=== PATIENT | female | born 1995 | race Caucasian/White ===

== ENCOUNTER → 2022-03-10 | Outpatient (CLI) | payer OTHER, SELFPAY ==
[2022-03-10 22:20] LABS: Amphetamine Urine VISTA NEGATIVE (<1000 ng/mL); Barbiturate Urine VISTA NEGATIVE (< 200 ng/mL); Benzodiazepine Urine VISTA NEGATIVE (< 200 ng/mL); Cocaine Urine VISTA NEGATIVE (< 300 ng/mL); Ecstacy Urine VISTA NEGATIVE (< 500 ng/mL); Methadone Urine VISTA NEGATIVE (< 300 ng/mL); PCP Urine VISTA NEGATIVE (< 25 ng/mL); THC Urine VISTA NEGATIVE (< 50 ng/mL); Vista UDS pH Range 7
== END | disposition home or self-care (01) ==
LOC: LABSPEC 16:32
PROVIDERS: Visit Provider Obstetrics & Gynecology
DX: Z34.00 Encounter for supervision of normal first pregnancy, unspecified trimester (principal)
CPT/HCPCS: 80307; 87086

== ENCOUNTER → 2022-04-05 | Outpatient (CLI) | payer OTHER, SELFPAY ==
[2022-04-05 13:23] LABS: Absolute Lymphocyte Count 1.42 X10^3/uL (0.83-4.51); Absolute Neutrophil Count 7.8 X10^3/uL (2.0-7.7); Basophil# 0.03 X10^3/uL; Basophil% 0.3 % (0-1); Eosinophil# 0.07 X10^3/uL; Eosinophils% 0.7 % (0-5); Hematocrit 34.6 % (37-47); Hemoglobin 11.6 g/dL (12.0-15.0); Lymphocyte # 1.42 X10^3/ul (0.83-4.51); Lymphocyte % 14.2 % (19-41); Mean Corp Hgb Conc 33.5 g/dL (32-36); Mean Corpuscular Hgb 32.3 pg (27.0-32.0); Mean Corpuscular Volume 96.4 fL (81-99); Mean Platelet Vol. 10.7 fl (6.2-12.0); Monocyte# 0.63 X10^3/uL; Monocyte% 6.3 % (0-10); NRBC Flagged by Analyzer 0 % (0-5); Neutrophil # 7.83 X10^3/uL (2.7-7.7); Neutrophil % 78.2 % (47-70); Platelet Count 205 K/mm3 (150-450); RBC Distribution Width SD 45.8 fl (35.1-43.9); Red Blood Count 3.59 M/mm3 (4.2-5.4)
[2022-04-05 13:52] LABS: Glucose Challenge Gest 1H 50g 85 mg/dL (70-140)
== END | disposition home or self-care (01) ==
PROVIDERS: Referring Provider Nurse Practitioner Women's Health; Visit Provider Nurse Practitioner Women's Health
DX: Z34.90 Encounter for supervision of normal pregnancy, unspecified, unspecified trimester (principal); Z13.1 Encounter for screening for diabetes mellitus
CPT/HCPCS: 36415; 82950; 85025

== ENCOUNTER → 2022-05-28 | Outpatient (CLI) | payer OTHER, SELFPAY | END | disposition home or self-care (01) | LOC: LABSPEC 05-31 09:57 | PROVIDERS: Visit Provider Obstetrics & Gynecology | DX: Z34.90 Encounter for supervision of normal pregnancy, unspecified, unspecified trimester (principal) | CPT/HCPCS: 87081 ==

== ENCOUNTER 2022-07-01 13:45 | Inpatient (IN) | payer OTHER, SELFPAY ==
[2022-07-01] VITALS (35 sets, daily range): BP systolic 98–132; BP diastolic 49–78; PULSE 61–95; TEMP 36.4–37.1; O2SAT 96–99; BMI 26.8
[2022-07-01 15:00] LABS: Absolute Lymphocyte Count 1.48 X10^3/uL (0.83-4.51); Absolute Neutrophil Count 6.2 X10^3/uL (2.0-7.7); Basophil# 0.02 X10^3/uL; Basophil% 0.2 % (0-1); Eosinophil# 0.03 X10^3/uL; Eosinophils% 0.4 % (0-5); Hematocrit 37.1 % (37-47); Hemoglobin 12.4 g/dL (12.0-15.0); Lymphocyte # 1.48 X10^3/ul (0.83-4.51); Mean Corp Hgb Conc 33.4 g/dL (32-36); Mean Corpuscular Hgb 30.5 pg (27.0-32.0); Mean Corpuscular Volume 91.4 fL (81-99); Mean Platelet Vol. 11.4 fl (6.2-12.0); Monocyte# 0.49 X10^3/uL; NRBC Flagged by Analyzer 0 % (0-5); Neutrophil # 6.18 X10^3/uL (2.7-7.7); Platelet Count 220 K/mm3 (150-450); RBC Distribution Width CV 13.2 % (11.6-14.6); RBC Distribution Width SD 42.7 fl (35.1-43.9); Red Blood Count 4.06 M/mm3 (4.2-5.4); White Blood Count 8.2 K/mm3 (4.4-11.0)
[2022-07-01] MEDS: miSOPROStol 25 MCG TABLET VAGINAL ×2 (15:30→20:55)
--- NOTE | 2022-07-01 17:31 | HP.PCM.OB_ITS ---
HPI - General General Date of Admission: 07/01/22 HPI Narrative FRED MCGILL, is a 27 F who presents for IOL secondary to postdates. no vb lof good fm no regularctx Maternal Data Information LARY Calculator Estimated Delivery Date Method Current WG Current Estimate 06/23/22 LMP (Certain) 41w 1d Other Estimates 06/26/22 Ultrasound #1 40w 5d PFSH PFSH Medical History (Updated 07/01/22 @ 17:[address] Luisa Azevedo MD) Home Medications docosahexaenoic acid 200 mg capsule ( DHA) 200 mg PO DAILY 03/10/22 [History Last Taken 07/01/22] Allergy/AdvReac Type Severity Reaction Status Date / Time No Known Allergies Allergy Verified 06/11/22 15:59 Family History Grandfather CVA (cerebral vascular accident) Myocardial infarction Grandmother Diabetes Cancer brain Mother Melanoma Surgical History (Updated 07/01/22 @ 17:[address] Luisa Azevedo MD) H/O breast biopsy Social History Smoking Status: Never smoker alcohol intake: never substance use type: does not use caffeine: Yes what type of physical activity do you participate in: aerobics and weight training frequency: 3-4 times per week seatbelt use: always do you feel safe at home: Yes additional social history: - Gabriel History 1 Elective abortions Hx Para 0 Spontaneous abortions Hx # Term Pregnancies Ectopic pregnancies Hx # Pregnancies Multiple births # of living children Visit Details Expected Delivery Route/Plan Labor Preferences- CB/BF classes: encouraged labor support person: Gabriel labor intervention preferences: [] pain management options preferred: limited intervention, open to epidural cut cord/dad catch: gabriel to catch and cut cord : yes PP control planned: discussed discussed possible routes of delivery and associated risks: [] special requests: wants tub labor if possible Plans Covid status: no vaccine Flu vaccine: no Tdap vaccine: given Rhogam: NA LARC form signed: yes Problem list reviewed and updated with the most current plan of care details and appropriate orders placed. Relevant counseling for the gestational age provided. Continue routine care and follow up unless otherwise noted in visit notes/problem list details OB Flowsheet Initial Weight: Not Recorded Date -?-?-?-?-?-?-?-?-?-?-?-?- EGA Weight BP Urine Prot -?-?-?-?-?-?-?-?-?-?-?-?- Glucose FHR FuHt Pres Dilation -?-?-?-?-?-?-?-?-?-?-?-?- Effaced St Visit Note 03/10/22 -?-?-?--?-?-?-?-?-?-?-?-?- 25w 0d 154 lb 2 oz 110/82 Nega tive -?-?-?-?-?-?-?-?-?-?-?-?- Negative 144 24 -?-?-?-?-?-?-?-?-?-?-?-?- JV- transfer of care from [place] due to insurance issues. PT has had all labs. plan for GCT at 28 weeks. we discussed TDAP at next visit. 04/05/22 -?-?-?-?-?-?-?-?-?-?-?-?- 28w 5d 156 lb 4 oz 118/64 Nega tive -?-?-?-?-?-?-?-?-?-?-?-?- Negative 143 28 -?-?-?-?-?-?-?-?-?-?-?-?- MH-No VB, LOF. G ood FM. 28 wk labs, larc, tdap. Worsening varicosity left palm-refer Dr Graham 04/19/22 -?-?-?-?-?-?-?-?-?-?-?-?- 30w 5d 157 lb 110/62 Negative -?-?-?-?-?-?-?-?-?-?-?-?- Negative 140 31 -?-?-?-?-?-?-?-?-?-?-?-?- SM- no vb lof go od fm no regular ctx 05/12/22 -?-?-?-?-?-?-?-?-?-?-?-?- 34w 0d 164 lb 112/74 -?-?-?-?-?-?-?-?-?-?-?-?- 145 33 -?-?-?-?-?-?-?-?-?-?-?-?- JV- no lof ,vagi nal bleeding, or dec fm. labor interventions discussed. 05/28/22 -?-?-?-?-?-?-?-?-?-?-?-?- 36w 2d 162 lb 2 oz 116/76 Nega tive -?-?-?-?-?-?-?-?-?-?-?-?- Negative 143 36 0 -?-?-?-?-?-?-?-?-?-?-?-?- JV- no lof, vagi nal bleeding, or dec fm. gbs collected. 06/03/22 -?-?-?-?-?-?-?-?-?-?-?-?- 37w 1d 168 lb 112/72 Negative -?-?-?-?-?-?-?-?-?-?-?-?- Negative 140 37 0 -?--?-?-?-?-?-?-?-?-?-?-?- MH-No VB, LOF. G ood FM. No CTX. Denies concerns. 06/11/22 -?-?-?-?-?-?-?-?-?-?-?-?- 38w 2d 169 lb 122/74 Negative -?-?-?-?-?-?-?-?-?-?-?-?- Negative 145 37 0.5 -?-?-?-?-?-?-?-?-?-?-?-?- 0 -2 JV- no lof , vaginal bleeding, or dec fm. 06/18/22 -?-?-?-?-?-?-?-?-?-?-?-?- 39w 2d 168 lb 130/82 Negative -?-?-?-?-?-?-?-?-?-?-?-?- Negative 140 37 1 -?-?-?-?-?-?-?-?-?-?-?-?- 80 -1 JV- no lof , vaginal bleeding, or dec fm. no complaints. wants membranes swept 06/25/22 -?-?-?-?-?-?-?-?-?-?-?-?- 40w 2d 166 lb 106/80 -?-?-?-?-?-?-?-?-?-?-?-?- 145 36 1 -?-?-?-?-?--?-?-?-?-?-?-?- JV- baby very lo w but cervix posterior. GENE today JV- baby very low but cervix posterior. GENE today14 07/01/22 -?-?-?-?-?-?-?-?-?-?-?-?- 41w 1d 166 lb 4 oz 125/76 117/73 -?-?-?-?-?-?-?-?-?-?-?-?- -?-?-?-?-?-?-?-?-?-?-?-?- NST FHR Rate Baby A Baseline: 130 Variability:: Moderate Accelerations:: 15 x 15 Decelerations:: None NST Reactive:: Yes FHR Category:: Category I Uterine Activity:: irregular ROS Constitutional Constitutional: Reports systems reviewed and no addt'l complaints, except as documented Eyes Eyes: Denies change in vision ENT HEENT: Reports systems reviewed and no addt'l complaints, except as documented; Denies headache(s) Cardiovascular Cardiovascular: Reports systems reviewed and no addt'l complaints, except as documented; Denies chest pain or dyspnea Respiratory/Chest Respiratory/Chest: Reports systems reviewed and no addt'l complaints, except as documented Gastrointestinal Gastrointestinal: Reports systems reviewed and no addt'l complaints, except as documented; Denies abdominal pain Genitourinary Genitourinary: Reports systems reviewed and no addt'l complaints, except as documented, contractions Details: present (irregular) and movement Details: present; Denies dysuria or genital lesions Musculoskeletal Musculoskeletal: Reports systems reviewed and no addt'l complaints, except as documented Neurologic Neurologic: Reports systems reviewed and no addt'l complaints, except as documented Endocrine Endocrinology: Reports systems reviewed and no addt'l complaints, except as documented Vital Signs Vital Signs Vital Signs: 07/01/22 13:59 07/01/22 13:59 07/01/22 14:00 Temperature 97.9 F Temperature Source Pulse Rate 76 Blood Pressure 125/76 H BP Systolic 125 BP Diastolic 76 07/01/22 17:14 07/01/22 17:13 07/01/22 17:14 Temperature 98.8 F Temperature Source Temporal Pulse Rate Blood Pressure 117/73 BP Systolic 117 BP Diastolic 73 07/01/22 17:14 07/01/22 17:13 Temperature 98.8 F Temperature Source Pulse Rate 63 Blood Pressure BP Systolic BP Diastolic Weight Weight: 166 lb 4 oz Body Mass Index (BMI) 26.8 Physical Exam Const alert, oriented x3, no apparent distress and healthy appearing HEENT normocephalic and moist oral mucous membranes Head and Scalp: atraumatic Neck full ROM, no lymphadenopathy, supple and thyroid normal General: trachea midline Lymph Lymphatic: no lymphadenopathy noted Chest inspection of chest normal Resp normal respiratory effort Cardio regular rate GI normal to inspection, nondistended, normoactive bowel sounds, soft to palpation and non-tender Inspection: gravid external exam normal Manual OB Exam: estimated gestational size appropriate, presentation cephalic, dilated, effaced and station Extremity normal to inspection General Extremity: Negative for edema Skin no rashes or lesions noted Neuro no focal motor deficits and deep tendon reflexes 2+ bilaterally Motor Exam: strength 5/5 throughout and clonus absent Psych mental status grossly normal Labs Labs Labs: Blood Type B POSITIVE Antibody Screen NEGATIVE Hct 37.1 % (37-47) Hgb 12.4 g/dL (12.0-15.0) Glucose 1 Hr 50 gm 85 mg/dL (70-140) Assessment & Plan (1) : QUALIFIERS: Weeks of gestation: 40 weeks Qualified Code(s): Z3A.40 - 40 weeks gestation of COMMENT: GBS neg. NIPT low risk, gender female (Moe Garcia) , AFP negative (2) Supervision of normal first : QUALIFIERS: Trimester: third trimester Qualified Code(s): Z34.03 - Encounter for supervision of normal first , third trimester COMMENT: PRR . LARY:06/23/22 Sp:Gabriel Torres at 25 wk (3) Encounter for induction of labor: COMMENT: cytotec
[2022-07-01 20:22] LABS: ROM Internal Control Test YES-OK TO RESULT pt. (Internal QC); ROM Patient Test Negative (Negative)
[2022-07-01] MEDS: LACTATED RINGERS 500 ML 999 ML IV (21:50)
[2022-07-01] MEDS: Lactated Ringers 1,000 ML 50 ML IV (22:21)
[2022-07-01] MEDS: fentaNYL-bupivacaine (epidural) 100 ML BAG EPIDURAL (22:52)
[2022-07-02] VITALS (28 sets, daily range): BP systolic 106–136; BP diastolic 56–80; PULSE 58–185; RESP 12–16; TEMP 35.8–37.3; O2SAT 82–99
[2022-07-02] MEDS: LACTATED RINGERS 500 ML 999 ML IV (00:10)
[2022-07-02] MEDS: Oxytocin 30 units/NS 500 ml 30 UNITS/500 ML IV.SOLN 334 UNITS IV (01:57)
[2022-07-02] MEDS: Naproxen 500 MG Tablet PO ×2 (08:42→17:21)
[2022-07-02] MEDS: Acetaminophen 500 MG Tablet 1000 MG PO ×2 (11:34→18:36)
[2022-07-02] MEDS: Senna/Docusate Sodium 1 Tablet PO (23:05)
[2022-07-02] MEDS: Benzocaine/Lanolin/Aloe Vera 1 SPRAY EACH TOPICAL (23:06)
[2022-07-03 00:05] VITALS: BP 106/43; PULSE 77; RESP 16; TEMP 35.9
[2022-07-03] MEDS: Naproxen 500 MG Tablet PO ×2 (01:54→12:26)
[2022-07-03] MEDS: Acetaminophen 500 MG Tablet 1000 MG PO (01:55)
[2022-07-03 03:23] VITALS: BP 116/68; PULSE 67; RESP 16; TEMP 36.4
[2022-07-03 08:46] VITALS: BP 109/70; PULSE 59; RESP 16; TEMP 35.9; O2SAT 97
--- NOTE | 2022-07-03 09:13 | EX.PCM.OBRPT ---
Assessment & Plan (1) Encounter for induction of labor: COMMENT: cytotec (2) Supervision of normal first : QUALIFIERS: Trimester: third trimester Qualified Code(s): Z34.03 - Encounter for supervision of normal first , third trimester COMMENT: PRR . LARY:06/23/22 Sp:Roberto Torres at 25 wk (3) : QUALIFIERS: Weeks of gestation: 40 weeks Qualified Code(s): Z3A.40 - 40 weeks gestation of COMMENT: GBS neg. NIPT low risk, gender female (Moe Garcia) , AFP negative Maternal Data Information LARY Calculator Estimated Delivery Date Method Current WG Current Estimate 06/23/22 LMP (Certain) 41w 3d Other Estimates 06/26/22 Ultrasound #1 41w 0d Vaginal Delivery Operative Information Date of Procedure: 07/02/22 Pre-Operative Diagnosis: IOL postdates Post-Operative Diagnosis: same Surgery / Procedure Performed: Spontaneous Vaginal Delivery Type of Anesthesia: Epidural Special Medications: none Estimated Blood Loss: 100 Fluids Replaced: crystalloid Findings Description of Procedure: Patient began pushing and delivered the head in the MEHRDAD presentation. The head was delivered atraumatically . The anterior and posterior shoulders delivered without complication followed by the rest of the infant and the infant was placed on the maternal abdomen. Delayed cord clamping was employed for approximately 60 seconds. Cord was clamped and cut and gentle traction was applied to the cord and the placenta delivered spontaneously immediately following it was noted to be intact with three-vessel cord. The perineum and vagina were inspected and noted to have no laceration. EBL was 100 cc. Patient and infant tolerated delivery well. Presentation: MEHRDAD Amniotic Membrane Rupture Type: Artificial Amniotic Fluid Description: Clear Placental Delivery Description: Spontaneous Placenta Disposition: [facility] Cord Vessel Description: 3 Vessels Cord Entanglement: None Delayed Cord Clamping: Yes Post Vaginal Delivery Medications Given After Delivery: IV Pitocin Episiotomy Description: None Laceration: None Complication Complications: None Procedures Urinary/Genital [id number]: [id number] Vaginal Delivery global pk
--- NOTE | 2022-07-03 09:14 | DCINST_ITS ---
Discharge Instructions Diet Discharge Diet: No restrictions Activity Discharge Activity: Return to Normal Activity, May Drive, May Shower and May Take a Tub Bath (in 4 weeks) May resume sexual activity in: 6-8 weeks (after seen by OB provider) Weight Bearing Status: Full weight bearing Lifting Restrictions: none Dressing / Incision Call your doctor if you observe: Fever of 101 or Higher, Inability to urinate, Using more than 1 pad per hour (for more than 2 hours in a row or more), Shortness of breath, Dizziness, Chest pain and - (headache not controlled with tylenol, change in vision) Follow Up Care When: in 6 weeks for visit, call the office to make the appointment. If you had elevated blood pressures call the office to be seen within 1 week. Test Results: Test results from this visit will be discussed in further detail at your follow- up appointment, if applicable. Discharge Plan Admission Admit Date/Time: 07/01/22 13:45 Attending Provider: Luisa Azevedo Primary Care Provider: Care Physician,Barb Primary Discharge Orders/Prescriptions Prescriptions: No Action DHA 200 mg capsule 200 mg PO DAILY Referrals / Follow Up: Care Physician,No Primary [Primary Care Provider] - Disposition Disposition (needs filled in before D/C Order can be placed): Home, Self Care
--- NOTE | 2022-07-03 09:14 | PCM.PN.OB ---
Subjective Subjective Patient doing well without complaints. Tolerating PO. Ambulating and voiding without difficulty. feeding well. Denies chest pain, shortness of breath, calf pain/swelling, fevers, chills, lightheadedness. Objective Data Objective Data Vital Signs: Vital Signs Temp Pulse Resp BP Pulse Ox O2 Del Method 96.6 F L 59 L 16 109/70 97 Room Air 07/03/22 08:46 07/03/22 08:46 07/03/22 08:46 07/03/22 08:46 07/03/22 08:46 07/03/22 08:46 Oxygen Delivery Method Room Air Weight: 166 lb 4 oz Body Mass Index (BMI) 26.8 Intake & Output: Intake and Output for Last 24 Hours 07/01/22 07/02/22 07/03/22 23:59 23:59 23:59 Intake Total 703.33 / 703.33 1600.00 / 1600.00 Output Total 200 / 200 3050 / 3050 Balance 503.33 / 503.33 -1450.00 / -1450.00 Lab / Micro Data Result Diagrams: 07/01/22 14:40 ROS Constitutional Constitutional: Reports systems reviewed and no addt'l complaints, except as documented Cardiovascular Cardiovascular: Reports systems reviewed and no addt'l complaints, except as documented Respiratory/Chest Respiratory/Chest: Reports systems reviewed and no addt'l complaints, except as documented Gastrointestinal Gastrointestinal: Reports systems reviewed and no addt'l complaints, except as documented Physical Exam Const alert, oriented x3 and no apparent distress HEENT Head and Scalp: atraumatic Resp normal respiratory effort GI soft to palpation and non-tender Bimanual Exam - Vag & Uterus: uterus non-tender Uterus Palpation: uterus fundus firm (below Umbilicus)
[2022-07-03 10:00] VITALS: BP 117/56; PULSE 75; RESP 16; TEMP 36.5; O2SAT 97
== END 2022-07-03 14:20 | disposition home or self-care (01) | DRG 807 ==
PROVIDERS: Obstetrics & Gynecology; Admitting Provider Obstetrics & Gynecology; Visit Provider Obstetrics & Gynecology
DX: O48.0 Post-term pregnancy (principal); Z37.0 Single live birth; Z3A.40 40 weeks gestation of pregnancy
CPT/HCPCS: 59025; 59050; 84112; 85025; 86850; 86900; 86901; 99218; J7120; G0378

== ENCOUNTER → 2022-08-19 | Outpatient (CLI) | payer OTHER, SELFPAY ==
[2022-08-26 16:04] LABS: HPV APTIMA, High Risk Negative (Negative)
== END | disposition home or self-care (01) ==
LOC: LABSPEC 12:15
PROVIDERS: Referring Provider Obstetrics & Gynecology; Visit Provider Obstetrics & Gynecology
DX: Z12.4 Encounter for screening for malignant neoplasm of cervix (principal)
CPT/HCPCS: 87624; 88175; G0145

== ENCOUNTER → 2023-10-12 | Outpatient (CLI) | payer BC, SELFPAY ==
[2023-10-15 06:08] LABS: Chlamydia By Nucleic Acid AMP Negative (Negative); Gonococcus By Nucleic Acid AMP Negative (Negative)
== END | disposition home or self-care (01) ==
PROVIDERS: Visit Provider Obstetrics & Gynecology
DX: Z34.90 Encounter for supervision of normal pregnancy, unspecified, unspecified trimester (principal)
CPT/HCPCS: 87086; 87491; 87591

== ENCOUNTER → 2023-10-25 | Outpatient (CLI) | payer BC, SELFPAY ==
[2023-10-25 14:35] LABS: Absolute Lymphocyte Count 1.84 X10^3/uL (0.83-4.51); Absolute Neutrophil Count 6.4 X10^3/uL (2.0-7.7); Basophil# 0.05 X10^3/uL; Basophil% 0.6 % (0-1); Eosinophil# 0.11 X10^3/uL; Eosinophils% 1.2 % (0-5); Hematocrit 39.7 % (37-47); Lymphocyte # 1.84 X10^3/ul (0.83-4.51); Lymphocyte % 20.3 % (19-41); Mean Corp Hgb Conc 32.7 g/dL (32-36); Mean Corpuscular Hgb 30.1 pg (27.0-32.0); Mean Corpuscular Volume 91.9 fL (81-99); Mean Platelet Vol. 10.3 fl (6.2-12.0); Monocyte# 0.66 X10^3/uL; Monocyte% 7.3 % (0-10); NRBC Flagged by Analyzer 0 % (0-5); Neutrophil # 6.36 X10^3/uL (2.7-7.7); Neutrophil % 70.3 % (47-70); Platelet Count 210 K/mm3 (150-450); RBC Distribution Width CV 13.4 % (11.6-14.6); RBC Distribution Width SD 44.9 fl (35.1-43.9); Red Blood Count 4.32 M/mm3 (4.2-5.4); White Blood Count 9.1 K/mm3 (4.4-11.0)
[2023-10-25 15:31] LABS: NATERA MAILED SPECIMEN
[2023-10-25 15:52] LABS: HIV - WCH Non-Reactive (Nonreactive); Hepatitis B Surface Antigen Non-Reactive (Nonreactive); Hepatitis C Antibody Non-Reactive (Nonreactive); Rubella IgG Reactive (Nonreactive); Syphilis Antibodies Non-reactive
== END | disposition home or self-care (01) ==
PROVIDERS: Referring Provider Obstetrics & Gynecology; Visit Provider Obstetrics & Gynecology
DX: Z34.81 Encounter for supervision of other normal pregnancy, first trimester (principal)
CPT/HCPCS: 36415; 85025; 86703; 86762; 86780; 86803; 86850; 86900; 86901; 87340

== ENCOUNTER → 2024-02-02 | Outpatient (CLI) | payer BC, SELFPAY ==
[2024-02-02 15:52] LABS: Absolute Lymphocyte Count 1.21 X10^3/uL (0.83-4.51); Absolute Neutrophil Count 8.2 X10^3/uL (2.0-7.7); Basophil# 0.03 X10^3/uL; Basophil% 0.3 % (0-1); Eosinophil# 0.11 X10^3/uL; Eosinophils% 1.1 % (0-5); Hematocrit 33.9 % (37-47); Hemoglobin 11.6 g/dL (12.0-15.0); Lymphocyte # 1.21 X10^3/ul (0.83-4.51); Lymphocyte % 11.9 % (19-41); Mean Corp Hgb Conc 34.2 g/dL (32-36); Mean Corpuscular Hgb 32.3 pg (27.0-32.0); Mean Corpuscular Volume 94.4 fL (81-99); Mean Platelet Vol. 10.1 fl (6.2-12.0); Monocyte# 0.52 X10^3/uL; Monocyte% 5.1 % (0-10); NRBC Flagged by Analyzer 0 % (0-5); Neutrophil # 8.24 X10^3/uL (2.7-7.7); Neutrophil % 81.3 % (47-70); Platelet Count 229 K/mm3 (150-450); RBC Distribution Width CV 12.9 % (11.6-14.6); RBC Distribution Width SD 44.7 fl (35.1-43.9); Red Blood Count 3.59 M/mm3 (4.2-5.4); White Blood Count 10.1 K/mm3 (4.4-11.0)
[2024-02-02 16:04] LABS: Glucose Challenge Gest 1H 50g 156 mg/dL (70-140)
[2024-02-02 17:50] LABS: HIV - WCH Non-Reactive (Nonreactive); Syphilis Antibodies Non-reactive
== END | disposition home or self-care (01) ==
LOC: PAVLAB 15:04
PROVIDERS: Advanced Practice Midwife; Referring Provider Obstetrics & Gynecology; Visit Provider Obstetrics & Gynecology
DX: O09.90 Supervision of high risk pregnancy, unspecified, unspecified trimester (principal); Z13.1 Encounter for screening for diabetes mellitus; Z3A.00 Weeks of gestation of pregnancy not specified
CPT/HCPCS: 36415; 82950; 85025; 86703; 86780

== ENCOUNTER → 2024-02-10 | Outpatient (CLI) | payer OTHER, SELFPAY ==
[2024-02-10 08:23] LABS: Glucose GTT-30 minutes 170 mg/dL (110-170)
[2024-02-10 08:39] LABS: Glucose GTT- Fasting 83 mg/dL (74-106)
[2024-02-10 09:18] LABS: Glucose GTT- 1 Hour 156 mg/dL (120-170)
[2024-02-10 10:10] LABS: Glucose GTT- 2 Hour 135 mg/dL (70-120)
[2024-02-10 11:48] LABS: Glucose GTT- 3 Hour 40 mg/dL (74-106)
== END | disposition home or self-care (01) ==
LOC: LAB 06:50
PROVIDERS: Referring Provider Advanced Practice Midwife; Visit Provider Advanced Practice Midwife
DX: O99.810 Abnormal glucose complicating pregnancy (principal); Z3A.00 Weeks of gestation of pregnancy not specified
CPT/HCPCS: 36415; 82951; 82952

== ENCOUNTER → 2024-04-20 | Outpatient (CLI) | payer OTHER, SELFPAY | END | disposition home or self-care (01) | PROVIDERS: Referring Provider Obstetrics & Gynecology; Visit Provider Obstetrics & Gynecology | DX: O09.92 Supervision of high risk pregnancy, unspecified, second trimester (principal); Z3A.00 Weeks of gestation of pregnancy not specified | CPT/HCPCS: 87081 ==

== ENCOUNTER 2024-05-15 11:17 | Inpatient (IN) | payer OTHER, SELFPAY ==
[2024-05-15 11:20] VITALS: BMI 27.6
[2024-05-15 15:04] VITALS: BP 121/67; PULSE 84; RESP 16; TEMP 36.4
[2024-05-15] MEDS: Lactated Ringers 1,000 ML 50 ML IV (15:40)
[2024-05-15] MEDS: Mag /Aluminum/Simeth WCH UDC 30 ML ORAL.SUSP PO (15:42)
[2024-05-15 16:04] LABS: Absolute Lymphocyte Count 1.58 X10^3/uL (0.83-4.51); Absolute Neutrophil Count 6.4 X10^3/uL (2.0-7.7); Basophil# 0.03 X10^3/uL; Basophil% 0.4 % (0-1); Eosinophil# 0.07 X10^3/uL; Eosinophils% 0.8 % (0-5); Hematocrit 36.7 % (37-47); Hemoglobin 12.2 g/dL (12.0-15.0); Lymphocyte # 1.58 X10^3/ul (0.83-4.51); Lymphocyte % 18.7 % (19-41); Mean Corp Hgb Conc 33.2 g/dL (32-36); Mean Corpuscular Volume 90.2 fL (81-99); Mean Platelet Vol. 11.3 fl (6.2-12.0); Monocyte% 4.7 % (0-10); NRBC Flagged by Analyzer 0 % (0-5); Neutrophil # 6.35 X10^3/uL (2.7-7.7); Platelet Count 199 K/mm3 (150-450); RBC Distribution Width CV 13.2 % (11.6-14.6); Red Blood Count 4.07 M/mm3 (4.2-5.4); White Blood Count 8.5 K/mm3 (4.4-11.0)
[2024-05-15 16:19] LABS: AST(SGOT) 25 U/L (15-37); Alanine Aminotransfer ALT/SGPT 19 U/L (13-56); Creatinine, Serum 0.79 mg/dL (0.55-1.02); EST Glomerular Filtration Rate 93 mL/min (>60); Est Glom Filt Rate - Afr Amer 112 mL/min (>60); Estimated Creatinine Clearance 111.48 ml/min; Uric Acid 4.9 mg/dL (2.6-6.0)
[2024-05-15 16:20] LABS: Protein:Creat Ratio 220 mg/g CRE (0-200)
[2024-05-15 16:39] LABS: Syphilis Antibodies Non-reactive
[2024-05-15] MEDS: miSOPROStol 25 MCG TABLET VAGINAL ×2 (17:33→21:40)
[2024-05-15 17:43] VITALS: BP 115/68; PULSE 71; RESP 16
--- NOTE | 2024-05-15 17:53 | HP.PCM.OB_ITS ---
HPI - General General Date of Admission: 05/15/24 HPI Narrative FRED MCGILL, is a 29 y/o @ 40 weeks 1 day who presents to L&D with an GENE found in office to be 1.8. She denies loss of fluid, vaginal bleeding, or contractions. Her last baby was delivered within 12 hours of 2 doses of cytotec. Maternal Data Information LARY Calculator Estimated Delivery Date Method Current WG Current Estimate 05/14/24 LMP (Certain) 40w 1d Other Estimates 05/15/24 Ultrasound #1 40w 0d PFSH PFSH Medical History Chemical Vaginal delivery Encounter for induction of labor Supervision of normal first Home Medications ?Medication ?Instructions ?Recorded ?Last Taken ?Type multivitamin no.47-iron fum 27 cap PO 10/11/23 Unknown History mg-folate no.1 1 mg-dha 300 mg capsule (PNV-DHA) Allergy/AdvReac Type Severity Reaction Status Date / Time No Known Allergies Allergy Verified 05/15/24 10:02 Family History Grandfather CVA (cerebral vascular accident) Myocardial infarction Grandmother Diabetes Cancer brain Mother Melanoma Surgical History H/O breast biopsy Social History adopted: No household members: spouse and children number of children: 1 current occupational status: employed current occupation: [employer] current occupational exposures/hazards: No pets and animals: No history of recent travel: [place] out of state: Yes out of country: No sexually active: Yes Smoking Status: Never smoker alcohol intake: never substance use type: does not use well-balanced diet: daily or most days caffeine: Yes Type: coffee Number of servings: 1 eating out: 1-3 times/week during the past year weight has: other details: had baby in 2021. Back to pre state what type of physical activity do you participate in: walking frequency: 3-4 times per week tammy/taoism: Yazdanism seatbelt use: always do you feel safe at home: Yes additional social history: - Roberto- Baby Formula [employer] [facility] History 3 Elective abortions Hx Para 1 Spontaneous abortions 1 Hx # Term Pregnancies 1 Ectopic pregnancies Hx # Pregnancies Multiple births # of living children 1 Past Pregnancies Del. Date Name GA/Weeks Outcome Route Bth Weight Infant Gen Labor Lgth Anesthesia Del Locatn Provider FOB 07/02/22 Tasha Garcia 41 live - full term 6lbs 12 oz Fema le epidural [facility] Luisa Mejia Delivery Date: 07/02/22 Last Updated by: Irena Wood see problem list for complications, and see note. Visit Details Expected Delivery Route/Plan Labor Preferences- CB/BF classes: [] labor support person: [] labor intervention preferences: [] pain management options preferred: [] cut cord/dad catch: [] : [] PP control planned: [] discussed possible routes of delivery and associated risks: [] special requests: [] Plans Covid status: [] Flu vaccine: declined Tdap vaccine: [] Rhogam: [] LARC form signed: [] Problem list reviewed and updated with the most current plan of care details and appropriate orders placed. Relevant counseling for the gestational age provided. Continue routine care and follow up unless otherwise noted in visit notes/problem list details OB Flowsheet Initial Weight: Not Recorded Date -?-?-?-?-?-?-?-?-?-?-?-?- EGA Weight BP Urine Prot -?-?-?-?-?-?-?-?-?-?-?-?- Glucose FHR FuHt Pres Dilation -?-?-?-?-?-?-?-?-?-?-?-?- Effaced St Visit Note 10/12/23 -?--?-?-?-?-?-?-?-?-?-?-?- 9w 2d 140 lb 2 oz 138/66 -?-?-?-?-?-?-?-?-?-?-?-?- 180 -?-?-?-?-?-?-?-?-?-?-?-?- JV- CRL consiste nt with LMP. desires nipt. has 15 month old at home. 11/07/23 -?-?-?-?-?-?-?-?-?-?-?-?- 13w 0d 142 lb 6 oz 122/82 Nega tive -?-?-?-?-?-?-?-?-?-?-?-?- Negative 153 -?-?-?-?-?-?-?-?-?-?-?-?- LC- no vb/crampi ng. declines afp. anatomy scan ordered. 12/06/23 -?-?-?-?-?-?-?-?-?-?-?-?- 17w 1d 145 lb 6 oz 118/70 Nega tive -?-?-?-?-?-?-?-?-?-?-?-?- Negative 153 -?-?-?-?-?-?-?-?-?-?-?-?- MH-No VB, LOF. N o flutters yet. Denies concerns 01/03/24 -?-?-?-?-?-?-?-?-?-?-?-?- 21w 1d 152 lb 102/69 Negative -?-?-?-?-?-?-?-?-?-?-?-?- Negative 155 21 -?-?-?-?-?-?-?-?-?-?-?-?- KW- no vb/crampi ng. good fm. 28 week labs discussed. 02/02/24 -?-?-?-?-?-?-?-?-?-?-?-?- 25w 3d 154 lb 100/62 Negative -?-?-?-?-?-?-?-?-?-?-?-?- Negative 150 24 -?-?-?-?-?-?-?--?-?-?-?-?- SM- no vb lof go od fm no regular ctx. 03/02/24 -?-?-?-?-?-?-?-?-?-?-?-?- 29w 4d 158 lb 104/69 Negative -?-?-?-?-?-?-?-?-?-?-?-?- Negative 145 28 -?-?-?-?-?-?-?-?-?-?-?-?- KW- no vb/lof/ct x. good fm. KW- no vb/lof/ctx. good fm. no concerns 03/22/24 -?-?-?-?-?-?-?-?-?-?-?-?- 32w 3d 161 lb 106/69 Negative -?-?-?-?-?-?-?-?-?-?-?-?- Negative 140 31 -?-?-?-?-?-?-?-?-?-?-?-?- SM- no vb lof go od fm no regular ctx 04/06/24 -?-?-?-?-?-?-?-?-?-?-?-?- 34w 4d 163 lb 8 oz 116/74 Nega tive -?-?-?-?-?-?-?-?-?-?-?-?- Negative 130 33 -?-?-?-?-?-?-?-?-?-?-?-?- kw- no vb.lof.ct x. good fm. LARC today. 04/20/24 -?-?-?-?-?-?-?-?-?-?-?-?- 36w 4d 167 lb 112/76 Negative -?-?-?-?-?-?-?-?-?-?-?-?- Negative 130 36 Cephalic 1 -?-?-?-?-?-?-?-?-?-?-?-?- SM- no vb lof go od fm no regular ctx gbs 04/30/24 -?-?-?-?-?-?-?-?-?-?-?-?- 38w 0d 169 lb 2 oz 115/74 Nega tive -?-?-?-?-?-?-?-?-?-?-?-?- Negative 130 36 Cephalic -?-?-?-?-?-?-?-?-?-?-?-?- kw- no vb/lof/ct x. good fm. GENE by LILIAN-14. 05/09/24 -?-?--?-?-?-?-?-?-?-?-?-?- 39w 2d 169 lb 121/82 Negative -?-?-?-?-?-?-?-?-?-?-?-?- Negative 130 37 Cephalic 2 -?-?-?-?-?-?-?-?-?-?-?-?- 60 -2 kw- no vb/ lof/ctx. good fm. 05/15/24 -?-?-?-?-?-?-?-?-?-?-?-?- 40w 1d 170 lb 132/91 Negative -?-?-?-?-?-?-?-?-?-?-?-?- Negative 140 38 1.5 -?-?-?-?-?-?-?-?-?-?-?-?- 20 -3 SM- no SM- no vb lof good fm no reg ular ctx ROS Constitutional Constitutional: Denies change in weight, fatigue, fever(s), headache(s), poor appetite or weakness Eyes Eyes: Denies blurry vision, change in vision, seeing flashes or spots in vision ENT HEENT: Denies dizziness, headache(s), loss taste/smell or sore throat Cardiovascular Cardiovascular: Denies chest pain, dizziness, dyspnea, irregular heart rhythm, leg edema, palpitations, rapid heart rate or vomiting Respiratory/Chest Respiratory/Chest: Denies chest tightness, cough, dyspnea or breast pain Gastrointestinal Gastrointestinal: Denies abdominal pain, anorexia, constipation, cramping, diarrhea, hemorrhoids, vomiting or weight changes Genitourinary Genitourinary: Denies dysuria, flank pain, genital lesions, genital pain, urinary frequency or urinary urgency Musculoskeletal Musculoskeletal: Denies back pain, difficulty walking, joint pain, limited range of motion, muscle cramps or numbness Integumentary Integumentary: Denies lesions or unusual bruising Neurologic Neurologic: Denies abnormal movements, abnormal speech, dizziness, numbness, seizure-like activity or syncope Psychiatric Psychiatric: Denies anxiety, behavioral changes, change in appetite, change in libido, cognitive impairment, confusion, depression, difficulty concentrating, hallucinations or suicidal thoughts Endocrine Endocrinology: Denies excessive sweating, polydipsia or polyuria Hematologic/Lymphatic Hematologic/Lymphatic: Denies easy bleeding, easy bruising or lymphadenopathy Allergic/Immunologic Allergic/Immunologic: Denies itchy eyes, lip swelling, seasonal rhinorrhea, rhi nitis, throat swelling, tongue swelling, eczemia, wheezing or asthma Vital Signs Vital Signs Vital Signs: 05/15/24 15:04 05/15/24 15:04 05/15/24 15:04 Temperature Temperature Source Temporal Pulse Rate 84 Respiratory Rate Blood Pressure 121/67 H BP Systolic 121 BP Diastolic 67 05/15/24 15:04 05/15/24 15:04 05/15/24 17:43 Temperature 97.6 F L Temperature Source Pulse Rate Respiratory Rate 16 Blood Pressure 115/68 BP Systolic 115 BP Diastolic 68 05/15/24 17:43 Temperature Temperature Source Pulse Rate 71 Respiratory Rate Blood Pressure BP Systolic BP Diastolic Weight Weight: 171 lb Body Mass Index (BMI) 27.6 Physical Exam Const alert, oriented x3, no apparent distress and healthy appearing General Appearance: cooperative; Negative for anxious HEENT normocephalic Face and Sinus: normal facial exam Eyes EOMs intact bilaterally and no scleral icterus General Eye: normal appearance of both eyes Neck full ROM and supple Lymph Lymphatic: no lymphadenopathy noted Chest Chest: abnormal inspection of the chest Resp normal respiratory effort Effort and Inspection: able to speak in complete sentences Cardio regular rate GI soft to palpation and non-tender Inspection: gravid Palpation: soft; Negative for tender external exam normal Amniotic Fluid: ROM+plus Back/Spine no CVA tenderness Extremity normal to inspection, full ROM and no clubbing, cyanosis or edema General Extremity: Negative for calf tenderness or edema Skin Lesions: no lesions Rashes: no rashes Psych mental status grossly normal Labs Labs Labs: Blood Type B POSITIVE Antibody Screen NEGATIVE Hct 36.7 % (37-47) L Hgb 12.2 g/dL (12.0-15.0) Syphilis Total Ab Non-reactive Rubella IgG Antibody Reactive (Nonreactive) Hep Bs Antigen Non-Reactive (Nonreactive) Hepatitis C Antibody Non-Reactive (Nonreactive) Chlamydia DNA (DEVIN) Negative (Negative) N.gonorrhoeae DNA (DEVIN) Negative (Negative) HIV 1&2 Antibody Non-Reactive (Nonreactive) Glucose 1 Hr 50 gm 156 mg/dL (70-140) H Rhogam given: No Assessment & Plan (1) Abnormal glucose affecting : COMMENT: normal 3 hour (2) Supervision of high-risk : QUALIFIERS: Trimester: second trimester Qualified Code(s): O09.92 - Supervision of high risk , unspecified, second trimester COMMENT: [id number], LARY 05/14/24, girl, Prudence Cordova, Brian (3) : QUALIFIERS: Weeks of gestation: 40 weeks Qualified Code(s): Z3A.40 - 40 weeks gestation of COMMENT: GBS Negative, NIPT low risk, declines carrier testing and AFP. nl anatomy (4) Pelvic floor dysfunction in female: COMMENT: discussed PFPT (5) Oligohydramnios: PLAN: Plan Patient presents IOL, plan management for with pitocin/AROM. Pain management: plans epidural. GBS negative. Management of any complications: none I have reviewed the PFSH and made any clinically relevant updates.
[2024-05-15 20:29] VITALS: BP 113/68; PULSE 68
[2024-05-15 20:30] VITALS: PULSE 80; RESP 16; TEMP 36.7; O2SAT 97
[2024-05-16] VITALS (49 sets, daily range): BP systolic 109–137; BP diastolic 53–86; PULSE 54–103; RESP 16–20; TEMP 36.5–37.1; O2SAT 96–100
[2024-05-16] MEDS: Lactated Ringers 1,000 ML 999 ML IV (00:09)
[2024-05-16] MEDS: fentaNYL-bupivacaine (epidural) 100 ML BAG EPIDURAL (00:55)
[2024-05-16] MEDS: Oxytocin 15 Units/NS 250ml 15 UNITS/250 ML IV.SOLN 334 UNITS IV (01:10)
--- NOTE | 2024-05-16 01:25 | OP.PCM_ITS ---
Assessment & Plan (1) Encounter for induction of labor: COMMENT: cytotec (2) Supervision of normal first : QUALIFIERS: Trimester: third trimester Qualified Code(s): Z34.03 - Encounter for supervision of normal first , third trimester COMMENT: PRR . LARY:06/23/22 Sp:Roberto Torres at 25 wk (3) : QUALIFIERS: Weeks of gestation: 40 weeks Qualified Code(s): Z3A.40 - 40 weeks gestation of COMMENT: GBS neg. NIPT low risk, gender female (Moe Garcia) , AFP negative (4) Oligohydramnios: (5) Abnormal glucose affecting : COMMENT: normal 3 hour (6) Supervision of high-risk : QUALIFIERS: Trimester: second trimester Qualified Code(s): O09.92 - Supervision of high risk , unspecified, second trimester COMMENT: [id number], LARY 05/14/24, girl, Prudence Cordova, Brian (7) : QUALIFIERS: Weeks of gestation: 40 weeks Qualified Code(s): Z3A.40 - 40 weeks gestation of COMMENT: GBS Negative, NIPT low risk, declines carrier testing and AFP. nl anatomy (8) Pelvic floor dysfunction in female: COMMENT: discussed PFPT Maternal Data Information LARY Calculator Estimated Delivery Date Method Current WG Current Estimate 05/14/24 LMP (Certain) 40w 2d Other Estimates 05/15/24 Ultrasound #1 40w 1d Vaginal Delivery Maternal Presentation Maternal Presentation: Medically Indicated Induction Type of Induction: Cervidil Operative Information Date of Procedure: 05/16/24 Pre-Operative Diagnosis: 29 y/o @ 40 weeks 2 days, oligohydramnios Post-Operative Diagnosis: 29 y/o @ 40 weeks 2 days, oligohydramnios Surgery / Procedure Performed: Spontaneous Vaginal Delivery Type of Anesthesia: Epidural Special Medications: none Estimated Blood Loss: 100 Fluids Replaced: crystalloid Time of Delivery: 01:06 Findings Description of Procedure: Patient began pushing and delivered the head in the MEHRDAD presentation. The head was delivered atraumatically . The anterior and posterior shoulders delivered without complication followed by the rest of the and the was placed on the maternal abdomen. Delayed cord clamping was employed for approximately 60 seconds. Cord was clamped and cut and gentle traction was applied to the cord and the placenta delivered spontaneously immediately following it was noted to be intact with three-vessel cord. The perineum and vagina were inspected and noted to have a 1st degree perineal laceration and a left labial laceration. Both were repaired using a 3-0 vicryl. EBL was 100 cc. Patient and tolerated delivery well. baby girl Prudence Lyons Presentation: MEHRDAD Amniotic Membrane Rupture Type: Artificial Amniotic Fluid Description: Clear Placental Delivery Description: Spontaneous Placenta Disposition: [facility] Cord Vessel Description: 3 Vessels Cord Entanglement: None A Gender: Female (1 minute): 8 (5 minute): 9 Delayed Cord Clamping: Yes Post Vaginal Delivery Medications Given After Delivery: IV Pitocin Episiotomy Description: None Laceration: Perineal Extension/lac (left labial tear ) and 1st degree Complication Complications: None Procedures Urinary/Genital [id number]: [id number] Vaginal Delivery [facility]
[2024-05-16] MEDS: Lidocaine 1% (20 ml mdv) 20 ML Vial INFILT (01:28)
--- NOTE | 2024-05-16 01:31 | DCINST_ITS ---
Discharge Instructions Diet Discharge Diet: No restrictions Activity Discharge Activity: Return to Normal Activity, May Drive, May Shower and May Take a Tub Bath (in 4 weeks) May resume sexual activity in: 6-8 weeks (after seen by OB provider) Weight Bearing Status: Full weight bearing Lifting Restrictions: none Dressing / Incision Call your doctor if you observe: Fever of 101 or Higher, Inability to urinate, Using more than 1 pad per hour (for more than 2 hours in a row or more), Shortness of breath, Dizziness, Chest pain and - (headache not controlled with tylenol, change in vision) Follow Up Care When: in 6 weeks for visit, call the office to make the appointment. If you had elevated blood pressures call the office to be seen within 1 week. Test Results: Test results from this visit will be discussed in further detail at your follow- up appointment, if applicable. Discharge Plan Admission Admit Date/Time: 05/15/24 11:17 Primary Reason for Your Visit: vaginal delivery Attending Provider: Katie Taylor Primary Care Provider: Care Physician,Barb Primary Discharge Orders/Prescriptions Prescriptions: No Action PNV-DHA 27 mg iron-1 mg -300 mg capsule 1 cap PO DAILY Referrals / Follow Up: Care Physician,No Primary [Primary Care Provider] - Disposition Disposition (needs filled in before D/C Order can be placed): Home, Self Care
[2024-05-16] MEDS: Oxytocin 15 Units/NS 250ml 15 UNITS/250 ML IV.SOLN 83 UNITS IV (01:41)
[2024-05-16] MEDS: Acetaminophen 500 MG Tablet 1000 MG PO ×3 (06:42→22:17)
[2024-05-16] MEDS: Senna/Docusate Sodium 1 Tablet PO (12:32)
[2024-05-16] MEDS: Ibuprofen 600 MG Tablet PO ×2 (12:39→18:26)
[2024-05-16] MEDS: Prenatal Vits Tablet 1 TABLET PO (12:39)
[2024-05-17 01:29] VITALS: BP 118/70; PULSE 64; PULSE 66; RESP 15; TEMP 36.3; O2SAT 97
[2024-05-17] MEDS: Ibuprofen 600 MG Tablet PO (01:37)
[2024-05-17] MEDS: Acetaminophen 500 MG Tablet 1000 MG PO (04:20)
--- NOTE | 2024-05-17 07:43 | PN.OBGYN_ITS ---
Subjective Subjective Patient doing well without complaints. Tolerating PO. Ambulating and voiding without difficulty. Feeding well. Denies chest pain, shortness of breath, calf pain/swelling, fevers, chills, lightheadedness. Objective Data Objective Data Vital Signs: Vital Signs Temp Pulse Resp BP Pulse Ox O2 Del Method 97.3 F L 66 15 118/70 97 Room Air 05/17/24 01:29 05/17/24 01:29 05/17/24 01:29 05/17/24 01:29 05/17/24 01:29 05/17/24 01:29 Oxygen Delivery Method Room Air Weight: 171 lb Body Mass Index (BMI) 27.6 Intake & Output: Intake and Output for Last 24 Hours 05/15/24 05/16/24 05/17/24 23:59 23:59 23:59 Intake Total 1888.67 / 1888.67 Output Total 1650 / 1650 Balance 238.67 / 238.67 Lab / Micro Data 05/15/24 15:40 05/15/24 15:40 ROS Constitutional Constitutional: Denies chills, fatigue, fever(s), poor appetite or weakness Eyes Eyes: Denies blurry vision, change in vision, seeing flashes or spots in vision ENT HEENT: Denies dizziness, headache(s), loss taste/smell or sore throat Cardiovascular Cardiovascular: Denies chest pain, dizziness, dyspnea, irregular heart rhythm, palpitations or rapid heart rate Respiratory/Chest Respiratory/Chest: Denies chest tightness, cough, dyspnea or breast pain Gastrointestinal Gastrointestinal: Denies abdominal pain, constipation or vomiting Genitourinary Genitourinary: Denies dysuria or flank pain Musculoskeletal Musculoskeletal: Denies difficulty walking, joint pain, limited range of motion or numbness Neurologic Neurologic: Denies abnormal movements, abnormal speech, dizziness, numbness, seizure-like activity or syncope Psychiatric Psychiatric: Denies anxiety, behavioral changes, change in appetite, confusion, depression or suicidal thoughts Physical Exam Const alert, oriented x3 and no apparent distress General Appearance: cooperative and comfortable Resp normal respiratory effort Cardio regular rate GI normal to inspection, nondistended, normoactive bowel sounds GI Narrative: uterus is firm below umbilicus Palpation: soft Back/Spine no CVA tenderness and thoraco-lumbar ROM normal Extremity normal to inspection, no clubbing, cyanosis or edema, no calf tenderness and no pedal edema Psych mental status grossly normal, thought process normal, cooperative, affect normal, speech normal, activity/motor behavior normal, denies homicidal ideation and denies suicidal ideation Assessment & Plan (1) Abnormal glucose affecting : COMMENT: normal 3 hour (2) Supervision of high-risk : QUALIFIERS: Trimester: second trimester Qualified Code(s): O09.92 - Supervision of high risk , unspecified, second trimester COMMENT: [id number], LARY 05/14/24, girl, Prudence LONG Cordova, Brian (3) : QUALIFIERS: Weeks of gestation: 40 weeks Qualified Code(s): Z 3A.40 - 40 weeks gestation of COMMENT: GBS Negative, NIPT low risk, declines carrier testing and AFP. nl anatomy (4) Pelvic floor dysfunction in female: COMMENT: discussed PFPT (5) Vaginal delivery: COMMENT: JV PLAN: Plan s/p PPD # 1 1. routine post delivery care 2. breast feeding- support given 3. rh positive 4. rubella immune 5. patient wishes to be discharged to home today
[2024-05-17 08:26] VITALS: BP 110/67; PULSE 67; PULSE 77; O2SAT 98
[2024-05-17 08:40] VITALS: BP 110/67; PULSE 77; RESP 16; TEMP 36.1; O2SAT 98
--- NOTE | 2024-05-21 15:33 | NURSING ---
F/up phone call performed. Pt feeling very well, denies s+s of complications. has been nurisng well, but sleepy and will only feed about 10 minutes at a time. Has a weight check appt tomorrow. IBCLC encouraged pt. to undress infant, change diaper, switch nursing positions, and use a wipe or cool cloth to stimulate and help keep infant more engaged during keeping.
== END 2024-05-17 09:35 | disposition home or self-care (01) | DRG 807 ==
PROVIDERS: Obstetrics & Gynecology; Admitting Provider Obstetrics & Gynecology; Visit Provider Obstetrics & Gynecology
DX: O41.03X0 Oligohydramnios, third trimester, not applicable or unspecified (principal); Z37.0 Single live birth; O34.83 Maternal care for other abnormalities of pelvic organs, third trimester; O70.0 First degree perineal laceration during delivery; Z3A.40 40 weeks gestation of pregnancy
CPT/HCPCS: 59025; 59050; 82565; 82570; 84156; 84450; 84460; 84550; 85025; 86780; 86850; 86900; 86901; 99221; J7120; G0378